=== PATIENT | female | born 1980 | race Caucasian/White ===

== ENCOUNTER 2024-04-22 21:27 | Emergency (ER) | payer MEDICAID ==
[2024-04-22] MEDS: Acetaminophen/HYDROcodone 325-5 MG Tab PO ONE (22:15)
== END 2024-04-22 22:16 | disposition home or self-care (01) ==
LOC: FB.ED 21:27
DX: G44.59 Other complicated headache syndrome (principal); H47.11 Papilledema associated with increased intracranial pressure; K21.9 Gastro-esophageal reflux disease without esophagitis; Z79.899 Other long term (current) drug therapy; Z86.16 Personal history of COVID-19
CPT/HCPCS: 99283; A9270